=== PATIENT | male | born 1960 | race Caucasian/White ===

== ENCOUNTER → 2024-06-30 | Day surgery (SDC) | payer OTHER ==
[~2024-06-30] MED LIST: AMANTADINE100 MG PO; ASPIRIN81 MG PO; FENTANYL CITRATE/PF 100MCG/2 ML INJ ONE; LIDOCAINE HCL 2% LOCAL INJ 5 ML SDV VIAL INJ ONE; METFORMIN HCL500 MG PO; PROPOFOL IV EMULSION 10 MG/ML 20 ML VIAL ONE; SINEMET 25-1001 EACH PO
[2024-06-30] MEDS: LACTATED RINGER'S 1,000 ML ONE (06:31)
[2024-06-30 08:07] VITALS: TEMP 97
[2024-06-30 08:30] VITALS: BP 134/88; PULSE 64; RESP 18; O2SAT 98
== END | disposition home or self-care (01) ==
LOC: OR 05:59
PROVIDERS: ATTEND Internal Medicine Gastroenterology
DX: Z12.11 Encounter for screening for malignant neoplasm of colon (principal); K59.00 Constipation, unspecified; K21.9 Gastro-esophageal reflux disease without esophagitis; K44.9 Diaphragmatic hernia without obstruction or gangrene; E11.9 Type 2 diabetes mellitus without complications; G23.1 Progressive supranuclear ophthalmoplegia [Steele-Richardson-Olszewski]; F32.A Depression, unspecified; F03.90 Unspecified dementia, unspecified severity, without behavioral disturbance, psychotic disturbance, mood disturbance, and anxiety; Z79.84 Long term (current) use of oral hypoglycemic drugs; Z79.82 Long term (current) use of aspirin; Z79.899 Other long term (current) drug therapy; Z87.891 Personal history of nicotine dependence
CPT/HCPCS: 45330; J2001; J2704; J3010; J7121; 45378